=== PATIENT | male | born 1990 | race Caucasian/White ===

== ENCOUNTER 2016-03-18 07:49 | Day surgery (SDC) | payer OTHER ==
[~2016-03-18] VITALS: Ht 190.5 cm; Wt 129.7 kg
[2016-03-18] MEDS ORDERED: CLINDAMYCIN 600 MG in DEXTROSE 5% 50 ML IV SCH (08:00)
[2016-03-18] MEDS ORDERED: MULTI-DAY1 TAB PO (08:24)
[2016-03-18] MEDS ORDERED: BUPIVACAINE-MPF/EPI 0.25% 30 ML VIAL INJ ONE (09:47)
[2016-03-18] MEDS ORDERED: fentaNYL 0.05 MG/ML VIAL ONE (10:02)
[2016-03-18] MEDS ORDERED: HYDROmorphone PFS 2 MG/ML SYR ONE ×2 (10:02→11:35)
[2016-03-18] MEDS ORDERED: PROPOFOL 200 MG/20 ML VIAL IV ONE (10:05)
[2016-03-18] MEDS ORDERED: KETOROLAC 30 MG/ML VIAL ONE (10:05)
[2016-03-18] MEDS ORDERED: ONDANSETRON 4 MG/2 ML VIAL ONE (10:05)
[2016-03-18] MEDS ORDERED: ROCURONIUM 50 MG/5 ML VIAL IV ONE (10:05)
[2016-03-18] MEDS ORDERED: DEXAMETHASONE 4 MG/ML VIAL ONE (10:05)
[2016-03-18] MEDS ORDERED: DESFLURANE 240 ML BTL INH ONE (10:05)
[2016-03-18] MEDS ORDERED: PHENYLEPHRINE 10 MG/ML VIAL ONE (10:05)
[2016-03-18] MEDS ORDERED: GLYCOPYRROLATE 0.2 MG/ML VIAL ONE (10:05)
[2016-03-18] MEDS ORDERED: PROMETHAZINE 25 MG/ML VIAL IVP PRN (10:50)
[2016-03-18] MEDS ORDERED: HYDROmorphone 1 MG/ML AMP IVP PRN ×2 (10:50→11:15)
[2016-03-18] MEDS ORDERED: NACL 0.9% 1,000 ML IV SCH (11:12)
[2016-03-18] MEDS ORDERED: ACETAMINOPHEN 325 MG TAB PO PRN (11:15)
[2016-03-18] MEDS ORDERED: HYDROcodone/APAP 5/325 MG 1 TAB TAB PO PRN (11:15)
[2016-03-18] MEDS ORDERED: MORPHINE SULFATE 2 MG/ML SYR IVP PRN (11:15)
[2016-03-18] MEDS ORDERED: ONDANSETRON 4 MG/2 ML VIAL IV PRN (11:15)
[2016-03-18] MEDS ORDERED: MORPHINE SULFATE 4 MG/ML SYR IV PRN (11:15)
== END 2016-03-18 13:15 | disposition home or self-care (01) ==
LOC: MDS 07:49 → MMU 07:50 → MDS 13:15
PROVIDERS: ATTEND Surgery
DX: K80.10 Calculus of gallbladder with chronic cholecystitis without obstruction (principal); Z98.890 Other specified postprocedural states
CPT/HCPCS: 47562; 71010; 82374; 86886; 86900; 86901; J1100; J1170; J1885; J2370; J2405; J2704; J3010; J3490; J7030; J7060